=== PATIENT | female | born 1995 | race Caucasian/White ===

== ENCOUNTER 2018-12-04 13:35 | Emergency (ER) | payer SELFPAY ==
[~2018-12-04] VITALS: Wt 50.9 kg
[2018-12-04 13:36] VITALS: BP 128/73; PULSE 78; RESP 18
[2018-12-04] MEDS ORDERED: HYDR-4011 PO (14:30)
--- NOTE | 2018-12-04 14:32 | ERD ---
ER Documentation Chief Complaint Chief Complaint DENTAL PAIN TO THE LOWER RIGHT JAW HPI 23-year-old female had her right lower wisdom tooth extracted approximately a week and a half ago. She states the pain initially got better post procedure but then began becoming worse over the last 2-3 days. She was started on amoxicillin by her dentist but continued to have pain. She describes pain localized to the right side of the mouth. She reports no fevers or chills discharge or drainage. ROS All systems reviewed and are negative except as per history of present illness. Medications Home Meds Active Scripts Hydrocodone/Acetaminophen ([place] 5-325 Tablet) 1 Each Tablet, 1 TAB PO Q6H PRN for PAIN, #7 TAB Prov:RENAMICHAEL 12/04/18 Physical Exam Vitals Vital Signs Date Temp Pulse Resp B/P (MAP) Pulse Ox O2 O2 Flow FiO2 Time Delivery Rate 12/04/18 98.1 78 18 128/73 99 13:36 (91) Physical Exam GENERAL: The patient is well developed and appropriate for usual state of health in no apparent distress HEENT: Pupils equal, round, and reactive to light. EOMI. There is no scleral icterus. The right lower wisdom teeth area appears to be healing nicely. There is no evidence of residual abscess. No facial cellulitis is noted. NECK: C-spine is soft and supple, there is no meningismus. There is no cervical lymphadenopathy. LUNGS: Clear to auscultation bilaterally. There are no rales, wheezes or rhonchi. HEART: Regular rate and rhythm, no murmurs, clicks, rubs or gallops. Procedures/MDM Patient was taken to a room, seen and examined Medical decision makin-year-old otherwise healthy female presents the emergency department with pain related to her dental extraction. At this time, I see no evidence of acute infection and certainly no evidence of high risk infection like facial cellulitis. Overall the patient is clinically nontoxic and appropriate for outpatient care Departure Diagnosis: Primary Impression: Toothache Condition: Stable Patient Instructions: Dental Pain Additional Instructions: See your dentist this week. Return for any problems or concerns MICHAEL CHASE Dec 04, 2018 14:32
== END 2018-12-04 15:18 | disposition home or self-care (01) ==
LOC: FTE 13:35
DX: K08.89 Other specified disorders of teeth and supporting structures (principal)
CPT/HCPCS: 99283

== ENCOUNTER 2019-07-30 18:49 | Emergency (ER) | payer MEDICAID ==
[~2019-07-30] VITALS: Ht 149.9 cm; Wt 55.4 kg
[~2019-07-30 18:49] MED LIST: CYCL10TA7 PO; HYDR-4011 PO
[2019-07-30 19:08] VITALS: BP 132/86; PULSE 105; RESP 18; Ht 149.9 cm; Wt 55.4 kg
[2019-07-30] MEDS ORDERED: predniSONE 20 MG TAB PO ONE (20:30)
[2019-07-30] MEDS ORDERED: IBUPROFEN 600 MG TAB PO ONE (20:30)
== END 2019-07-30 21:23 | disposition home or self-care (01) ==
LOC: FTE 18:49
DX: S39.92XA Unspecified injury of lower back, initial encounter (principal); X58.XXXA Exposure to other specified factors, initial encounter; Y92.9 Unspecified place or not applicable
CPT/HCPCS: 81025; J7512; Z7610; 99283